=== PATIENT | female | born 1940 | race Caucasian/White ===

== ENCOUNTER → 2023-11-17 12:08 | Outpatient (REF) | payer OTHER, SELFPAY | LOC: HWWDC 12:08 | PROVIDERS: ATTENDING PHYSICIAN Family Medicine | DX: Z12.31 Encounter for screening mammogram for malignant neoplasm of breast (principal) | CPT/HCPCS: 77063; 77067 ==

== ENCOUNTER → 2023-12-01 09:23 | Outpatient (REF) | payer OTHER, SELFPAY ==
--- NOTE | 2023-12-01 14:37 | OID.BRR ---
Breast Navigator Note
- Patient Treatment
Treatment Site: [place]
- Notes
Diagnosis:
Treatment Site:
Medical Oncologist:
Radiation Oncologist:
Biopsy Date:
Biopsy Diagnosis:
Surgery Date:
Surgeon:
Date Comments
12/01/2023 Spoke with patient regarding recent breast imaging and need for biopsy. Concerned about finances and ability to care for self. Expressed concern and advised on resources available to help. Will be talking with PCP regarding recent
imaging and need for biopsy. Reiterated that personalized care is offered and that depending on biopsy could be eligible for different treatments. She verbalized understanding to all. My contact information was provided and she will call back as
needed. Email sent to social work Yue Brooks for follow up and to provided psychosocial/financial discussion/help. Spent over 25 minutes director professional services. Patient very grateful and thankful for call. NN will also be notified.
== END ==
LOC: WDC 09:23
PROVIDERS: ATTENDING PHYSICIAN Family Medicine
DX: R92.8 Other abnormal and inconclusive findings on diagnostic imaging of breast (principal)
CPT/HCPCS: 76642

== ENCOUNTER → 2023-12-10 07:46 | Outpatient (REF) | payer OTHER, SELFPAY ==
--- NOTE | 2023-12-10 15:01 | OID.BR.INTR ---
[facility] Breast Navigator - Initial
- -
Date of Contact: 12/10/23
Met with patient. Patient given written information on navigator service available at [facility]. Will follow up as needed per protocol.
== END ==
LOC: WDC 07:46
PROVIDERS: ATTENDING PHYSICIAN Family Medicine
DX: N63.11 Unspecified lump in the right breast, upper outer quadrant (principal)
CPT/HCPCS: 88305; 19083; 88341; 88342; 88360; A4648